=== PATIENT | male | born 1990 | race African-American/Black ===

== ENCOUNTER 2022-02-01 06:45 | Emergency (ER) | payer OTHER ==
[~2022-02-01] VITALS: Ht 170.2 cm; Wt 97.5 kg
[2022-02-01 06:51] VITALS: BP_SYST 141
[2022-02-01] MEDS ORDERED: TRAM50TA PO ×2 (07:06→07:08)
[2022-02-01 08:05] VITALS: BP_SYST 141
== END 2022-02-01 08:05 | disposition home or self-care (01) ==
LOC: SED 06:45
DX: S50.12XA Contusion of left forearm, initial encounter (principal); Z79.82 Long term (current) use of aspirin; W23.1XXA Caught, crushed, jammed, or pinched between stationary objects, initial encounter; Y93.89 Activity, other specified; Y92.89 Other specified places as the place of occurrence of the external cause; Y99.8 Other external cause status
CPT/HCPCS: 73090; 99283